=== PATIENT | male | born 1925 | race Caucasian/White ===

== ENCOUNTER → 2016-10-10 | Outpatient (CLI) | payer MEDICARE, OTHER | END | disposition home or self-care (01) | LOC: EDSEX 07:37 → RAD 07:37 | PROVIDERS: ATTEND Internal Medicine Hematology & Oncology | DX: Z51.11 Encounter for antineoplastic chemotherapy (principal); Z45.2 Encounter for adjustment and management of vascular access device; C90.00 Multiple myeloma not having achieved remission | CPT/HCPCS: 36569; 76937; 77001; C1751 ==